=== PATIENT | male | born 1985 | race Caucasian/White ===

== ENCOUNTER 2017-04-03 08:30 | Emergency (ER) | payer OTHER ==
[~2017-04-03] VITALS: Ht 182.9 cm; Wt 77.9 kg
[2017-04-03 08:48] LABS: HEMOGLOBIN 17.1 G/DL (12.5-16.6); MCH 30.7 PG (29.0-34.0); MCHC 34.9 G/DL (30.0-36.0); PLATELET COUNT 335 K/uL (156-360); RBC DIS.WIDTH-CV 11.8 % (11.8-14.6); RED BLOOD COUNT 5.57 M/uL (4.00-5.50); WHITE BLOOD COUNT 11.8 K/uL (4.1-10.2)
[2017-04-03 08:56] LABS: ALBUMIN 4.8 g/dL (3.2-4.8); CHLORIDE 101 mEq/L (99-109); POTASSIUM 3.5 mEq/L (3.7-5.4); SODIUM 138 mEq/L (136-147)
[2017-04-03 08:58] LABS: GLUCOSE 118 mg/dL (70-99); TOTAL PROTEIN 8.3 g/dL (6.4-8.3)
[2017-04-03 09:00] LABS: TOTAL BILIRUBIN 1.3 mg/dL (0.0-1.0)
[2017-04-03 09:02] LABS: ALKALINE PHOSPHATASE 76 IU/L (3-129)
[2017-04-03 09:03] LABS: UREA NITROGEN (BUN) 15 mg/dL (9-23)
[2017-04-03 09:04] LABS: AST (GOT) 63 IU/L (2-34)
[2017-04-03 09:05] LABS: ALT (GPT) 107 IU/L (3-49)
[2017-04-03 09:08] LABS: GFR ESTIMATE (CALCULATED) > 59 mL/min/ (58.99-99999)
[2017-04-03 09:47] LABS: APPEARANCE SL.HAZY ((CLEAR)); BILIRUBIN NEGATIVE; BLOOD NEGATIVE; COLOR AMBER ((YELLOW)); GLUCOSE (STRIP) NEGATIVE; KETONES 20; LEUKOCYTES NEGATIVE; NITRITE NEGATIVE; PROTEIN (STRIP) 30; SPECIFIC GRAVITY 1.034 (1.000-1.030)
[2017-04-03 09:52] LABS: BACTERIA RARE /HPF; EPITHELIAL CELLS NONE SEEN /HPF; MUCUS 1+ /LPF; RED BLOOD CELLS 0-5 /HPF (0-5); UCUL ADDED? NO; WHITE BLOOD CELLS 0-5 /HPF (0-5)
[2017-04-03] MEDS ORDERED: IMODIUM A-D2 M2 PO (10:09)
[2017-04-03] MEDS ORDERED: ZOFRAN4 MG PO (10:09)
[2017-04-03 10:46] VITALS: BP 127/72
== END 2017-04-03 10:44 | disposition home or self-care (01) ==
LOC: EME 08:30
DX: R11.2 Nausea with vomiting, unspecified (principal); R19.7 Diarrhea, unspecified; B19.20 Unspecified viral hepatitis C without hepatic coma
CPT/HCPCS: 80053; 81003; 85027; 99281; 99284